=== PATIENT | female | born 1975 | race Caucasian/White ===

== ENCOUNTER 2017-11-15 12:15 | Emergency (ER) | payer SELFPAY ==
[~2017-11-15] VITALS: Ht 170.2 cm; Wt 74.1 kg
[~2017-11-15 12:15] MED LIST: CENTRUM1 TAB PO; IRON325 M1 PO; NO HOME MEDICATIONS; NORVASC 5MG5 MG/TAB PO; SPRINTEC 35 MCG1 TAB PO
[2017-11-15 12:28] VITALS: BP 137/92; TEMP 99.5
[2017-11-15 14:12] VITALS: PULSE 81
== END 2017-11-15 14:14 | disposition home or self-care (01) ==
LOC: COL.ER 12:15
DX: S92.515A Nondisplaced fracture of proximal phalanx of left lesser toe(s), initial encounter for closed fracture (principal); W22.03XA Walked into furniture, initial encounter; Y92.009 Unspecified place in unspecified non-institutional (private) residence as the place of occurrence of the external cause

== ENCOUNTER 2017-11-24 05:36 | Emergency (ER) | payer SELFPAY ==
[~2017-11-24] VITALS: Ht 170.2 cm; Wt 74.1 kg
[2017-11-24 05:43] VITALS: BP 186/88; PULSE 78; TEMP 97.7
[2017-11-24 06:26] LABS: STREP SCREEN NEGATIVE
[2017-11-24 06:27] LABS: INFLUENZA A NEGATIVE; INFLUENZA B NEGATIVE
[2017-11-24] MEDS ORDERED: BACTRIM DS 8001 TAB PO (06:31)
== END 2017-11-24 06:38 | disposition home or self-care (01) ==
LOC: COL.ER 05:36
PROVIDERS: Emergency Medicine
DX: H66.92 Otitis media, unspecified, left ear (principal); J06.9 Acute upper respiratory infection, unspecified; J32.9 Chronic sinusitis, unspecified

== ENCOUNTER 2019-03-21 16:57 | Emergency (ER) | payer BC ==
[~2019-03-21] VITALS: Ht 170.2 cm; Wt 71.8 kg
[~2019-03-21 16:57] MED LIST changes: +BACTRIM DS 8001 TAB PO
[2019-03-21 17:09] VITALS: TEMP 98.3
[2019-03-21 19:13] LABS: BASO % 0.2 % (0.0-2.0); EOS # 0.1 (0.0-0.7); EOS % 1.3 % (0-4.0); GRAN # 5.3 (1.4-6.5); GRAN % 63.2 % (42.2-75.2); HEMATOCRIT 42.5 % (37.0-47.0); HEMOGLOBIN 14.1 g/dl (12.5-16.0); LYMPH # 2.4 (1.2-3.4); LYMPH % 28.6 % (20.0-51.0); MEAN CELL VOLUME 92 fl (80.0-100.0); MEAN CORPUSCULAR HEMOGLOBIN 31 pg (27.0-31.0); MEAN CORPUSCULAR HGB CONC 33 g/dl (33.0-37.0); MEAN PLATELET VOLUME 10.2 fl (7.4-10.4); MONO # 0.5 (0.1-0.6); MONO % 6.3 % (1.7-9.3); PLATELET COUNT 231 K/mm3 (130-400); RED BLOOD COUNT 4.61 M/mm3 (4.10-5.30); REDCELL DISTRIBUTION WIDTH-CV 12.2 % (11.5-14.5)
[2019-03-21 19:25] LABS: ALBUMIN 4.4 gm/dL (3.5-5.0); BILIRUBIN,TOTAL 0.3 mg/dL (0.0-1.0); CALCIUM 9.7 mg/dL (8.4-10.2); CREATININE, serum 0.76 (0.52-1.25); TOTAL PROTEIN 7.4 gm/dL (6.4-8.2)
[2019-03-21] MEDS ORDERED: ULTRAM 50MG TAB50 MG PO (21:21)
[2019-03-21] MEDS ORDERED: ZOFRAN ODT4 MG PO (21:21)
[2019-03-21] MEDS ORDERED: NEURONTIN300 MG/CAP PO (21:21)
[2019-03-21 21:45] VITALS: BP 149/89; PULSE 65
== END 2019-03-21 21:46 | disposition home or self-care (01) ==
LOC: COL.ER 16:57
PROVIDERS: Physician Assistant
DX: M54.12 Radiculopathy, cervical region (principal); R51 Headache; Z90.710 Acquired absence of both cervix and uterus; Z90.89 Acquired absence of other organs
CPT/HCPCS: Q9967

== ENCOUNTER → 2019-04-11 | Outpatient (CLI) | payer BC ==
[~2019-04-11] MED LIST changes: +NEURONTIN300 MG/CAP PO; +ULTRAM 50MG TAB50 MG PO; +ZOFRAN ODT4 MG PO
== END ==
LOC: COL.RAD 08:44
DX: M50.122 Cervical disc disorder at C5-C6 level with radiculopathy (principal)

== ENCOUNTER 2020-07-24 17:31 | Emergency (ER) | payer BC ==
[~2020-07-24] VITALS: Ht 170.2 cm; Wt 119.5 kg
[2020-07-24 17:39] VITALS: TEMP 97.2
[2020-07-24] MEDS ORDERED: PRINIVIL10 MG PO (17:53)
[2020-07-24] MEDS ORDERED: PAXIL 20MG20 MG PO (17:54)
[2020-07-24 19:05] VITALS: BP 156/94; PULSE 64
== END 2020-07-24 19:05 | disposition home or self-care (01) ==
LOC: COL.ER 17:31
DX: R07.89 Other chest pain (principal)

== ENCOUNTER 2021-02-23 22:42 | Emergency (ER) | payer BC ==
[~2021-02-23] VITALS: Ht 170.2 cm; Wt 80.0 kg
[~2021-02-23 22:42] MED LIST changes: +PAXIL 20MG20 MG PO; +PRINIVIL10 MG PO
[2021-02-23 23:02] VITALS: BP 136/77
[2021-02-24 00:32] VITALS: PULSE 75
== END 2021-02-24 00:32 | disposition home or self-care (01) ==
LOC: COL.ER 22:42
DX: S90.32XA Contusion of left foot, initial encounter (principal); Z88.8 Allergy status to other drugs, medicaments and biological substances; X58.XXXA Exposure to other specified factors, initial encounter

== ENCOUNTER 2022-04-03 04:07 | Emergency (ER) | payer BC ==
[~2022-04-03] VITALS: Ht 170.2 cm; Wt 82.7 kg
[2022-04-03 04:12] VITALS: TEMP 98
[2022-04-03] MEDS ORDERED: AMOXICILLIN 8751 TAB PO (04:26)
[2022-04-03 04:57] VITALS: BP 174/80; PULSE 76
== END 2022-04-03 05:00 | disposition home or self-care (01) ==
LOC: COL.ER 04:07
DX: H66.92 Otitis media, unspecified, left ear (principal); Z88.8 Allergy status to other drugs, medicaments and biological substances; Z28.310 Unvaccinated for COVID-19

== ENCOUNTER 2022-07-05 18:57 | Emergency (ER) | payer BC ==
[~2022-07-05] VITALS: Ht 172.7 cm; Wt 78.6 kg
[~2022-07-05 18:57] MED LIST changes: +AMOXICILLIN 8751 TAB PO
[2022-07-05 19:05] VITALS: TEMP 98.2
[2022-07-05] MEDS ORDERED: ULTRAM 50MG TAB50 MG PO (19:42)
[2022-07-05 20:00] VITALS: BP 190/89; PULSE 81
== END 2022-07-05 20:01 | disposition home or self-care (01) ==
LOC: COL.ER 18:57
DX: M54.41 Lumbago with sciatica, right side (principal); Z28.311 Partially vaccinated for COVID-19

== ENCOUNTER 2024-07-14 12:14 | Emergency (ER) | payer BC ==
[~2024-07-14] VITALS: Ht 170.2 cm; Wt 80.9 kg
[2024-07-14 12:18] VITALS: BP 145/92; TEMP 98.5
[2024-07-14 13:56] VITALS: PULSE 75
== END 2024-07-14 13:54 | disposition home or self-care (01) ==
LOC: COL.ER 12:14
DX: S92.511A Displaced fracture of proximal phalanx of right lesser toe(s), initial encounter for closed fracture (principal); W20.8XXA Other cause of strike by thrown, projected or falling object, initial encounter

== ENCOUNTER 2024-07-25 19:12 | Emergency (ER) | payer BC ==
[~2024-07-25] VITALS: Ht 170.2 cm; Wt 83.2 kg
[2024-07-25 19:16] VITALS: TEMP 98.7
[2024-07-25] MEDS ORDERED: hydrALAZINE 20 MG/ML 1 ML VIAL IV ONE (20:00)
[2024-07-25] MEDS ORDERED: LORazepam 2 MG/ML 1 ML VIAL IV ONE (20:00)
[2024-07-25] MEDS ORDERED: NS 1,000 ML IV ONE (20:00)
[2024-07-25 20:06] LABS: BASO % 0.3 % (0.0-2.0); EOS # 0.2 K/mm3 (0.0-0.7); EOS % 2.4 % (0.0-4.0); GRAN # 4.3 K/mm3 (1.4-6.5); GRAN % 56.6 % (42.2-75.2); HEMATOCRIT 41.4 % (37.0-47.0); HEMOGLOBIN 13.9 g/dl (12.5-16.0); LYMPH # 2.5 K/mm3 (1.2-3.4); LYMPH % 32.9 % (20.0-51.0); MEAN CELL VOLUME 89 fl (80.0-100.0); MEAN CORPUSCULAR HEMOGLOBIN 30 pg (27-31); MEAN CORPUSCULAR HGB CONC 34 g/dl (33.0-37.0); MEAN PLATELET VOLUME 10.1 fl (7.4-10.4); MONO # 0.5 K/mm3 (0.1-0.6); MONO % 7.1 % (1.7-9.3); PLATELET COUNT 243 K/mm3 (130-400); RED BLOOD COUNT 4.67 M/mm3 (4.10-5.30); REDCELL DISTRIBUTION WIDTH-CV 11.7 % (11.5-14.5)
[2024-07-25 20:32] LABS: ALANINE AMINOTRANSFERASE 38 U/L (0-55); ALBUMIN 4.4 g/dL (3.5-5.0); ALKALINE PHOSPHATASE 95 U/L (40-150); ANION GAP 16 mmol/L (7-16); AST,SGOT 27 U/L (5-34); BILIRUBIN,TOTAL 0.3 mg/dL (0.2-1.2); BLOOD UREA NITROGEN 22 mg/dL (10-20); C-REACTIVE PROTEIN 0.29 mg/dL (0.00-0.50); CALCIUM 9.8 mg/dL (8.4-10.2); CHLORIDE 108 mEq/L (98-107); CREATININE, serum 0.77 mg/dL (0.57-1.11); GLUCOSE 94 mg/dL (70-99); POTASSIUM 4.3 mEq/L (3.5-4.5); SODIUM 141 mEq/L (136-145); TOTAL PROTEIN 7.4 g/dl (6.2-8.1)
[2024-07-25 20:34] LABS: TROPONIN-I < 0.010 ng/mL (0.00-0.033)
[2024-07-25] MEDS ORDERED: ANTIVERT 25MG25 MG PO (21:11)
[2024-07-25] MEDS ORDERED: Meclizine 25 MG TAB PO ONE (21:15)
[2024-07-25 21:36] VITALS: BP 156/93; PULSE 79
== END 2024-07-25 21:36 | disposition home or self-care (01) ==
LOC: COL.ER 19:12
PROVIDERS: Emergency Medicine
DX: I10 Essential (primary) hypertension (principal); R42 Dizziness and giddiness; B34.9 Viral infection, unspecified; F41.9 Anxiety disorder, unspecified
CPT/HCPCS: J0360; J2060; J7030